=== PATIENT | female | born 1935 | race Asian ===

== ENCOUNTER 2016-09-12 08:58 | Emergency (ER) | payer MEDICARE, OTHER ==
[~2016-09-12] VITALS: Ht 165.1 cm; Wt 67.8 kg
[2016-09-12 09:16] VITALS: BP 166/78
== END 2016-09-12 10:16 | disposition home or self-care (01) ==
LOC: ED 10:10
DX: I10 Essential (primary) hypertension (principal); G47.00 Insomnia, unspecified; I25.2 Old myocardial infarction; Z86.73 Personal history of transient ischemic attack (TIA), and cerebral infarction without residual deficits
CPT/HCPCS: 99283